=== PATIENT | male | born 1950 | race Caucasian/White ===

== ENCOUNTER 2017-01-23 11:35 | Day surgery (SDC) | payer MEDICARE, BC ==
[~2017-01-23 11:35] MED LIST: ASCORBIC ACID500 MG PO; ASPIRIN325 MG PO; BAYER CHEWABLE81 MG PO; COZAAR100 MG PO; FOLATE0.4 MG PO; HYDROCODONE-APA1 TAB PO; ISOSORBIDE MONO20 MG PO; KLONOPIN0.5 MG PO; LEVAQUIN750 MG PO; MOBIC7.5 MG PO; NITROSTAT0.4 MG SL; NORVASC10 MG PO; PLAVIX75 MG PO; POTASSIUM99 M1 PO; PRAVACHOL80 MG PO; PRILOSEC20 MG PO; RANEXA500 MG PO; SINGULAIR10 MG PO; ULTRAM50 MG PO; VITAMIN A10000 UNIT PO; VITAMIN B-121000 MCG PO; VITAMIN D5000 UNIT PO
[2017-01-23 12:35] LABS: BASOPHILS 0.4 % (0-2); EOSINOPHILS 2.5 % (0-7); HEMATOCRIT 37.6 % (42.0-54.0); IMMATURE GRANULOCYTES 0.1 % (0-5); LYMPHOCYTES 22.3 % (15-50); MCH 32.8 pg (26.0-34.0); MCHC 34.6 g/dL (31.0-37.0); MCV 94.9 fL (80.0-100.0); MEAN PLATELET VOLUME 10.1 fL (7.4-10.4); MONOCYTES 9.7 % (2-11); PLATELET COUNT 153 10x3/uL (130-400); RBC 3.96 10x6/uL (4.20-6.10); RDW 12.7 % (11.5-14.5); WBC 6.7 10x3/uL (4.8-10.8)
[2017-01-23 12:50] LABS: ANION GAP 13.4 mmol/L (8-16); CALCIUM 8.9 mg/dL (8.5-10.1); CARBON DIOXIDE 28.6 mmol/L (21.0-32.0); CREATININE - SERUM 1.2 mg/dL (0.6-1.3)
[2017-01-23] MEDS ORDERED: ASPIRIN325 MG PO (13:52)
[2017-01-23 13:58] VITALS: BP 106/56; BMI 33.1
--- NOTE | 2017-01-23 16:18 | NUR ---
1530 DOSCHARGE INSTRUCTIONS COMPLETE. NO QUESTIONS OR CONCERNS AT THIS TIME. NO PRESCRIPTIONS GIVEN. PT ESCORTED OUT BY VOLUNTEER.
--- NOTE | 2017-01-25 16:01 | OP ---
PATIENT NAME: ZAIRA ANDERSON MEDICAL RECORD: [id number] :50 LOCATION:[facility] ADMISSION DATE: SURGEON: KAY CALDWELL MD DATE OF OPERATION: 01/23/2017 PROCEDURE: EGD with biopsy. REFERRING PHYSICIAN: Jacques Hoyos MD INDICATIONS: Mr. Anderson is a delightful 66-year-old gentleman with history of GE reflux disease and Rosas esophagitis. His last EGD on 12/08/2014 showed healed gastric ulcers, minimal gastritis, short segment Rosas esophagus, and small sliding-type hiatal hernia. Gastric biopsy showed gastropathic changes and minimal incipient fibrosis of the lamina propria. Antral biopsies were negative for H. pylori. He has been on omeprazole 40 mg at bedtime. He presents for outpatient surveillance EGD. PREMEDICATIONS: Total IV anesthesia (coronary artery disease, history of CVA), propofol 100 mg. INSTRUMENT: NXT-ID video gastroscope. PROCEDURE AND FINDINGS: After receiving informed consent, Mr. Anderson's posterior pharynx was anesthetized with Cetacaine spray, placed in the left lateral decubitus position, and sedated as per anesthesia. After achieving adequate sedation, gastroscope was introduced per orally and advanced to the duodenum without difficulty. Esophageal mucosa was notable for an irregular Z-line and biopsies were taken from the distal third of the esophagus. Small sliding-type hiatal hernia was present. Gastric mucosa was notable for mild prepyloric and antral erythema, and antral biopsies were obtained to rule out Helicobacter pylori. No lesions were seen along the incisura or in the cardia, fundus, or body of the stomach. Pylorus was patent and competent. Duodenal mucosa was without erythema or ulcers, appeared normal through the second portion. Gastroscope was then withdrawn. Mr. Anderson tolerated the procedure well. No immediate complications. ASSESSMENT: 1. Short segment Rosas esophagus, status post biopsy. 2. Small sliding-type hiatal hernia. 3. Mild gastritis. RECOMMENDATIONS: 1. Followup histopathology. 2. Continue omeprazole 40 mg daily. 3. Surveillance EGD in 2 years. TRANSINT:[id number] Voice Confirmation ID: [id number] DOCUMENT ID: [id number] OPERATIVE REPORT [id number] ZAIRA ANDERSON KAY CALDWELL MD at 1601 CC: JACQUES HOYOS MD [id number] DICTATION DATE: 01/23/17 1441 [employer]: 01/23/171929 [facility] SDC 01/23/17 [facility] [address] [place] [address]
== END 2017-01-23 15:30 | disposition home or self-care (01) ==
LOC: D.OPS 11:35
PROVIDERS: Anesthesiology
DX: K22.70 Barrett's esophagus without dysplasia (principal); F17.200 Nicotine dependence, unspecified, uncomplicated; I25.10 Atherosclerotic heart disease of native coronary artery without angina pectoris; I10 Essential (primary) hypertension; K21.9 Gastro-esophageal reflux disease without esophagitis; Z01.812 Encounter for preprocedural laboratory examination; K44.9 Diaphragmatic hernia without obstruction or gangrene; K29.70 Gastritis, unspecified, without bleeding